=== PATIENT | male | born 1990 | race Hispanic/Latino ===

== ENCOUNTER 2017-01-31 05:32 | Emergency (ER) | payer SELFPAY ==
[2017-01-31 05:57] VITALS: BP 128/75
--- NOTE | 2017-01-31 09:19 | Emergency Department Report ---
HPI - General Chief Complaint: Eye Problems Time Seen by Provider: 01/31/17 08:25 - HPI HPI: 26-year-old male presents to ED complaining of bilateral eye pain and blurry vision times today. Patient states he did not have any object in his eyes. Patient denies wearing contacts or glasses. Patient states he just walked up here from [place] and is having to [facility] and thinks his eyes retired from the walk. But wanted to come in and get them checked. Patient denies any eye trauma or fall. he states he has no past medical history He denies fevers/chills/nausea/vomiting/abdominal pain/chest pains or shortness of breath or any other problems. ED Past Medical Hx - Past Medical History Previous Medical History?: Yes Additional medical history: LEFT SHOULDER DISLOCATION - Surgical History Past Surgical History?: No - Social History Smoking Status: Current Every Day Smoker Substance Use Type: None - Medications Home Medications: Home Medications Medication Instructions Recorded Confirmed Last Taken Type Tetrahydrozoline HCl/Zn Sulf [Eye 1 - 2 drop OP QID #15 ml 01/31/17 Unknown Rx Drops Allergy Relief] ED Review of Systems ROS: Stated complaint: BLURRED VISION Other details as noted in HPI Constitutional: denies: chills, fever Eyes: eye pain. denies: eye discharge, vision change ENT: denies: ear pain, throat pain, dental pain, hearing loss Respiratory: denies: cough, shortness of breath, wheezing Cardiovascular: denies: chest pain, palpitations Endocrine: no symptoms reported Gastrointestinal: denies: abdominal pain, nausea, vomiting, diarrhea Genitourinary: denies: urgency, dysuria, frequency, hematuria Musculoskeletal: denies: back pain, joint swelling, arthralgia Skin: denies: rash, lesions Neurological: denies: headache, weakness, paresthesias Psychiatric: denies: anxiety, depression Hematological/Lymphatic: denies: easy bleeding, easy bruising Physical Exam - Physical Exam Vital Signs: Vital Signs 01/31/17 05:52 Temperature 97.6 F Pulse Rate 87 Respiratory 16 Rate Blood Pressure 128/75 O2 Sat by Pulse 98 Oximetry Physical Exam: GENERAL: Alert and oriented x3, no apparent distress, Normal Gait, atraumatic. HEAD: Head is normocephalic and a-traumatic. EYES: Extra ocular muscles are intact laterally. Pupils are equal, round, and reactive to light and accommodation bilaterally. Nontender to palpation, nonerythematous, nonedematous. Sclerae white bilaterally. No foreign object seen in eyes. EARS: symetrical, atraumatic, tympanic membrance non inflamed. gross auditory nml bilaterally. NOSE: Nose symetrical, Nontender,Nares appeared normal. MOUTH:Mouth is well hydrated and without lesions. Tonsils nonerythematous or swollen, Uvula midline, Tongue not elevated. Mucous membranes are moist. Posterior pharynx clear, no exudate or lesions. Patent airways. NECK: Supple. Non edematous, No carotid bruits. No lymphadenopathy or thyromegaly. No C-spine tenderness LUNGS: Symetrical with respiration, No wheezing, no rales or crackles, CTAB. HEART: S1, S2 present, regular rate and rhythm without murmur, no rubs, no gallops. NEUROLOGIC: No focal Deficit, Cranial nerves II through XII are grossly intact. No loss of sensation, PSYCHIATRIC: Mood is congruent with affect, denies suicidal or homicidal ideations. SKIN: Warm and dry, No lesions, No ulceration or induration present. ED Course Vital Signs 01/31/17 05:52 Temperature 97.6 F Pulse Rate 87 Respiratory 16 Rate Blood Pressure 128/75 O2 Sat by Pulse 98 Oximetry ED Medical Decision Making - Medical Decision Making 6-year-old male presented allergic conjunctivitis. ED course: Patient treated test performed see visual acuity - OD20/70 OS 20/50 OU 20/70 Discussed the patient to follow-up with family law attorney. Patient states he is walking home and will follow-up with eye clinic when he gets home. Patient's vital signs are normal patient is in no acute distress. Patient states he understands and will comply to follow-up. Critical care attestation.: If time is entered above; I have spent that time in minutes in the direct care of this critically ill patient, excluding procedure time. ED Disposition Clinical Impression: Allergic conjunctivitis Qualifiers: Laterality: bilateral Qualified Code(s): H10.13 - Acute atopic conjunctivitis, bilateral Disposition: DISCHARGED TO HOME OR SELFCARE Is pt being admited?: No Does the pt Need Aspirin: No Condition: Stable Instructions: Conjunctivitis (ED) Additional Instructions: Follow-up with the eye clinic will she get home. Use eyedrops as prescribed Prescriptions: Tetrahydrozoline HCl/Zn Sulf [Eye Drops Allergy Relief] 1 - 2 drop OP QID #15 ml Referrals: PRIMARY CARE, [Primary Care Provider] - 3-5 Days Forms: Work/School Release Form(ED) Time of Disposition: 09:35
== END 2017-01-31 09:45 | disposition home or self-care (01) ==
LOC: ED 05:32
DX: H10.13 Acute atopic conjunctivitis, bilateral (principal); F17.200 Nicotine dependence, unspecified, uncomplicated
CPT/HCPCS: 82962; 99283